=== PATIENT | female | born 1940 | race Hispanic/Latino ===

== ENCOUNTER 2019-12-16 01:05 | Inpatient (IN) | payer MEDICARE ==
[2019-12-16] VITALS (9 sets, daily range): BP systolic 117–138; BP diastolic 53–68
[~2019-12-16] VITALS: Ht 152.4 cm; Wt 70.8 kg
[2019-12-16] MEDS ORDERED: ONDANSETRON HCL 4 MG/2 ML VIAL IV PRN (04:30)
[2019-12-16] MEDS ORDERED: DIPHENHYDRAMINE HCL 25 MG CAPSULE PO PRN (04:30)
[2019-12-16] MEDS ORDERED: ACETAMINOPHEN 325 MG TAB PO PRN ×2 (04:30)
[2019-12-16] MEDS ORDERED: NITROGLYCERIN 0.4 MG SL TAB SL PRN (04:30)
[2019-12-16 05:23] LABS: HEMATOCRIT 23.9 % (36-48); MEAN CORPUSCULAR HEMOGLOBIN 30.4 pg (27.0-33.0); MEAN CORPUSCULAR HGB CONC 31.8 g/dL (32.0-36.0); MEAN CORPUSCULAR VOLUME 95.6 fL (79-99); PLATELET COUNT (AUTO) 292 K/uL (130-400); RED CELL DISTRIBUTION WIDTH 15.9 % (11.0-15.5); WHITE BLOOD COUNT (AUTO) 9.7 K/uL (4.8-10.8)
[2019-12-16] MEDS ORDERED: DOPAMINE 800MG/D5 250ML 250 ML IV SCH (05:30)
[2019-12-16 05:54] LABS: INR 0.92 (0.85-1.15); PARTIAL THROMBOPLASTIN TIME 26.9 SEC (26.3-35.5)
[2019-12-16 05:58] LABS: BAND NEUTROPHILS % (MANUAL) 2 % (0-2); EOSINOPHILS % (MANUAL) 3 % (1-6); LYMPHOCYTES % (MANUAL) 8 % (22-44); MAN.DIFF COMMENT-IMPRESSION MANUAL DIFFERENTIAL; MONOCYTES % (MANUAL) 4 % (2-9); PLATELET MORPHOLOGY COMMENT ADEQUATE; SEGMENTED NEUTROPHILS % 83 % (40-70)
[2019-12-16 06:00] LABS: BILIRUBIN,TOTAL 0.4 mg/dL (0.2-1.0); CREATININE 0.6 mg/dL (0.5-1.5); POTASSIUM 3.8 mmol/L (3.5-5.1); TOTAL PROTEIN, SERUM 5.5 g/dL (6.0-8.3)
[2019-12-16] MEDS: FAMOTIDINE/PF 20 MG/2 ML VIAL IV SCH ×2 (09:00→21:42)
--- NOTE | 2019-12-16 09:53 | NUR ---
CHART CHECK COMPLETED. Pt IS AN 79 Y.O. FEMALE ADMITTED SECONDARY TO SYMPTOMATIC BRADYCARDIA. Pt HAS A PAST MEDICAL HISTORY SIGNIFICANT FOR COVID-19+, GOUT, HYPERTENSION, ASTHMA, SHOULDER SX. Pt CURRENTLY NPO. PLEASE REQUEST FORMAL SKILLED SPEECH/SWALLOW EVALUATION IF Pt PRESENTS WITH +S/S OF ASPIRATION SUCH COUGH RESPONSE, THROAT CLEAR, OR WET VOCAL QUALITY DURING P.O. Addendum: 12/16/19 at 0955 by SUDHA GARIBAY, [facility] Amended: Links added.
[2019-12-16] MEDS ORDERED: VANCOMYCIN 1GM+NS 250ML 250 ML IV PRN (12:45)
[2019-12-16] MEDS ORDERED: MIDAZOLAM HCL 1 MG/ML 2ML VIAL ONE (12:52)
[2019-12-16] MEDS ORDERED: BUPIVACAINE/PF 0.25% 30ML VIAL IJ ONE (12:52)
[2019-12-16] MEDS ORDERED: IOHEXOL-350 50ML VIAL IV ONE (12:52)
[2019-12-16] MEDS ORDERED: MEPERIDINE-PF 25 MG/ML SYG ONE (12:52)
[2019-12-16] MEDS ORDERED: LIDOCAINE HCL 1% MDV 50ML VIAL ONE (12:53)
[2019-12-16] MEDS ORDERED: VANCOMYCIN 1GM+NS 250ML 500 ML IV ONE (12:53)
--- NOTE | 2019-12-16 12:57 | NUR ---
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 Verbalizes understanding.
[2019-12-16] MEDS ORDERED: TRAMADOL HCL 50 MG TABLET PO PRN (14:30)
--- NOTE | 2019-12-16 22:48 | NUR ---
Spoke to Daughter Dulce on the phone regarding DC instructions since patient is unable to sign for herself. All questions were answered. Patient was picked up by EMS.
== END 2019-12-16 22:38 | disposition short-term general hospital (02) | DRG 242 ==
LOC: 2DH 04:12 → OBSVTOIN 04:12
PROVIDERS: ADMIT Internal Medicine; ATTEND Internal Medicine
PROC: 0JH606Z Insertion of Pacemaker, Dual Chamber into Chest Subcutaneous Tissue and Fascia, Open Approach (ICD-10-PCS; principal; 2019-12-16)
PROC: 02HK3JZ Insertion of Pacemaker Lead into Right Ventricle, Percutaneous Approach (ICD-10-PCS; 2019-12-16)
PROC: 02H63JZ Insertion of Pacemaker Lead into Right Atrium, Percutaneous Approach (ICD-10-PCS; 2019-12-16)
DX: I49.5 Sick sinus syndrome (principal); U07.1 COVID-19; J12.89 Other viral pneumonia; I10 Essential (primary) hypertension; J45.909 Unspecified asthma, uncomplicated; Z20.828 Contact with and (suspected) exposure to other viral communicable diseases
CPT/HCPCS: 33208; 36415; 71045; 80053; 82948; 83735; 85025; 85610; 85730; 87426; 93005; 99156; 99157; C1785; G0378; J2175; J2250; J3370; J3490; Q9967